=== PATIENT | male | born 1970 | race Two or more races ===

== ENCOUNTER 2017-12-07 00:05 | Emergency (ER) | payer OTHER, MEDICAID ==
[~2017-12-07] VITALS: Ht 167.6 cm; Wt 74.8 kg
[2017-12-07 00:28] VITALS: BP 152/101
[2017-12-07] MEDS ORDERED: MAG HYDROX/AL HYDROX/SIMETH 30 ML UDC PO ONE (03:30)
[2017-12-07] MEDS ORDERED: LORAZEPAM 1 MG TABLET PO ONE (03:30)
[2017-12-07] MEDS ORDERED: MAG HYDROX/AL HYDROX/SIMETH 30 ML UDC ONE (03:30)
[2017-12-07] MEDS ORDERED: LORAZEPAM 1 MG TABLET ONE (03:31)
== END 2017-12-07 03:51 | disposition home or self-care (01) ==
LOC: ER 00:07
DX: F41.9 Anxiety disorder, unspecified (principal); R00.0 Tachycardia, unspecified; R00.2 Palpitations; I10 Essential (primary) hypertension; F10.10 Alcohol abuse, uncomplicated; F15.10 Other stimulant abuse, uncomplicated; F17.200 Nicotine dependence, unspecified, uncomplicated
CPT/HCPCS: A4606; Z7610